=== PATIENT | female | born 1950 | race Caucasian/White ===

== ENCOUNTER 2019-06-26 09:09 | Emergency (ER) | payer OTHER ==
[~2019-06-26] VITALS: Ht 157.5 cm; Wt 48.1 kg
[2019-06-26 10:43] VITALS: BP 102/76
== END 2019-06-26 10:59 | disposition home or self-care (01) ==
LOC: ER 09:09
DX: S83.91XA Sprain of unspecified site of right knee, initial encounter (principal); E78.5 Hyperlipidemia, unspecified; I10 Essential (primary) hypertension; F17.210 Nicotine dependence, cigarettes, uncomplicated; Z98.51 Tubal ligation status; X50.1XXA Overexertion from prolonged static or awkward postures, initial encounter; Y93.89 Activity, other specified; Y92.098 Other place in other non-institutional residence as the place of occurrence of the external cause; Y99.8 Other external cause status
CPT/HCPCS: 73590

== ENCOUNTER 2023-09-15 19:05 | Inpatient (IN) | payer OTHER, MEDICAID ==
[~2023-09-15] VITALS: Ht 154.9 cm; Wt 58.7 kg
[2023-09-15 20:57] LABS: Basophils # (auto) 0 10 ^3/uL (0-0.2); Eosinophils # (auto) 0 10 ^3/uL (0-0.8); Lymphocytes # (auto) 0.8 10 ^3/uL (0.4-5.4); Lymphocytes % (auto) 9.5 % (10.0-50.0); Mean Corpuscular Hemoglobin 33.1 pg (28.0-32.0); Monocytes # (auto) 0.8 10 ^3/uL (0-1.3); Nucleated Red Blood Cells % 0.2 %; Red Blood Cells 4.22 10^6/uL (4.0-5.20)
[2023-09-15 20:59] LABS: Basophils % (auto) 0.2 % (0.0-2.0); Eosinophils % (auto) 0.3 % (0.0-7.0); Hematocrit 43.8 % (36.0-46.0); Hemoglobin 13.9 g/dL (12.2-16.2); Mean Corpuscular Hgb Conc. 31.8 g/dL (32.0-36.0); Monocytes % (auto) 10.1 % (0.0-12.0); Neutrophils # (auto) 6.3 10 ^3/uL (1.6-8.6); Neutrophils % (auto) 79.9 % (37.0-80.0); White Blood Cell 7.9 10^3/uL (4.4-10.8)
[2023-09-15 21:13] LABS: Alanine Aminotransferase 28 U/L (7-40); Albumin 3.2 g/dL (3.2-4.8); Alkaline Phosphatase 115 U/L (46-116); Anion Gap 0 (5-15); Aspartate Aminotransferase 73 U/L (13-40); BUN/Creatinine Ratio 17.2 (10.0-20.0); Blood Urea Nitrogen 34 mg/dL (9-23); Calcium 8.8 mg/dL (8.7-10.4); Carbon Dioxide 19 mmol/L (20-30); Chloride 102 mmol/L (98-107); Glucose 130 mg/dL (74-106); Lipase 86 U/L (12-53); Sodium 121 mmol/L (136-145)
[2023-09-15 21:14] LABS: Bilirubin, Total 0.3 mg/dL (0.2-1.0); Total Protein 7.3 g/dL (5.7-8.2)
[2023-09-15 21:17] LABS: Potassium 5.9 mmol/L (3.5-5.1)
[2023-09-15 22:19] LABS: INR 1.25 (0.9-1.15); Partial Thromboplastin Time 29.4 SEC (24.5-34.5); Prothrombin Time 12.9 sec (9.3-11.8)
[2023-09-16] MEDS: InsuLIN REG 1unit/0.01ml Soln (100units/ml) IV ONE (00:15)
[2023-09-16] MEDS: ALBUTEROL SULF 2.5 MG/0.5ML(0.5%) NEB SOLN NEB ONE (00:38)
[2023-09-16 00:52] VITALS: PULSE 68; RESP 21; O2SAT 90
[2023-09-16] MEDS: DEXTROSE (50%) 50ML SYRG IV ONE (01:49)
[2023-09-16] MEDS ORDERED: ACETAMINOPHEN 325 MG TAB PO PRN (02:00)
[2023-09-16] MEDS ORDERED: ONDANSETRON HCL 4 MG/2 ML VIAL IV PRN (02:00)
[2023-09-16] MEDS ORDERED: DOCUSATE SOD 100 MG CAP PO PRN (02:00)
[2023-09-16] MEDS ORDERED: DEXTROSE (50%) 50ML SYRG IV PRN (02:00)
[2023-09-16 02:11] VITALS: BP 141/68; PULSE 63; RESP 18; TEMP 97.8; O2SAT 97
[2023-09-16] MEDS: ASPirin 81 mg TAB PO ONE (02:32)
[2023-09-16] MEDS: SODIUM ZIRCONIUM CYCL 10 GM PAK PO ONE (02:33)
[2023-09-16] MEDS: SODIUM CHLORIDE 0.9% 1,000 ML IV SCH (02:33)
[2023-09-16 03:57] LABS: Basophils # (auto) 0 10 ^3/uL (0-0.2); Basophils % (auto) 0.6 % (0.0-2.0); Eosinophils # (auto) 0 10 ^3/uL (0-0.8); Eosinophils % (auto) 0.1 % (0.0-7.0); Hematocrit 36.7 % (36.0-46.0); Hemoglobin 12.3 g/dL (12.2-16.2); Lymphocytes # (auto) 0.9 10 ^3/uL (0.4-5.4); Lymphocytes % (auto) 11.6 % (10.0-50.0); Mean Corpuscular Hemoglobin 33.8 pg (28.0-32.0); Mean Corpuscular Hgb Conc. 33.4 g/dL (32.0-36.0); Mean Corpuscular Volume 101.2 fL (80.0-100.0); Monocytes # (auto) 1.1 10 ^3/uL (0-1.3); Monocytes % (auto) 14.6 % (0.0-12.0); Neutrophils # (auto) 5.6 10 ^3/uL (1.6-8.6); Neutrophils % (auto) 73.1 % (37.0-80.0); Nucleated Red Blood Cells % 0.2 %; Red Blood Cells 3.62 10^6/uL (4.0-5.20); Red Cell Distribution Width 16.2 % (11.8-14.3); White Blood Cell 7.7 10^3/uL (4.4-10.8)
[2023-09-16 04:12] LABS: Albumin 2.8 g/dL (3.2-4.8); Alkaline Phosphatase 96 U/L (46-116); Anion Gap 4 (5-15); Aspartate Aminotransferase 72 U/L (13-40); BUN/Creatinine Ratio 18.7 (10.0-20.0); Blood Urea Nitrogen 38 mg/dL (9-23); Calcium 8.3 mg/dL (8.7-10.4); Carbon Dioxide 17 mmol/L (20-30); Chloride 101 mmol/L (98-107); Glucose 105 mg/dL (74-106); Potassium 4.9 mmol/L (3.5-5.1); Sodium 122 mmol/L (136-145)
[2023-09-16 04:13] LABS: Bilirubin, Total 0.2 mg/dL (0.2-1.0); Total Protein 6.2 g/dL (5.7-8.2)
[2023-09-16 04:21] LABS: Alanine Aminotransferase 27 U/L (7-40)
[2023-09-16] MEDS ORDERED: MORPHINE SULFATE INJ 2 MG/ml SYRG IV PRN (06:00)
[2023-09-16] MEDS ORDERED: NITROGLYCERIN 0.4 MG SL TAB SL PRN (06:00)
[2023-09-16 06:23] LABS: Urine Bacteria None Seen /hpf (None Seen)
[2023-09-16] MEDS: ACCU-CHEK COMFORT CURVE STRIP VI SCH (06:24)
[2023-09-16] MEDS: InsuLIN REG 1unit/0.01ml Soln (100units/ml) SC SCH ×2 (06:24→22:33)
[2023-09-16] MEDS: FUROSEMIDE 100 MG/10ML VIAL IV ONE (06:27)
[2023-09-16 06:52] LABS: Urine Blood Negative /uL (Negative); Urine Clarity Clear (Clear); Urine Color Yellow (Yellow); Urine Hyaline Cast FEW /lpf (0 - 2); Urine Protein, UAD 1+ (Negative); Urine Specific Gravity 1.019 (1.001-1.035); Urine Urobilinogen Normal (Negative); Urine WBC <1 /hpf (0 - 5)
[2023-09-16 07:28] VITALS: PULSE 74; RESP 8; O2SAT 95
[2023-09-16 10:29] VITALS: O2SAT 95
[2023-09-16] MEDS: FUROSEMIDE 40 MG/4 ML VIAL IV SCH (10:48)
[2023-09-16] MEDS: FUROSEMIDE 40 MG/4 ML VIAL IV ONE (13:24)
[2023-09-16 18:08] VITALS: O2SAT 98
[2023-09-16 19:30] VITALS: PULSE 91; RESP 12; O2SAT 93
[2023-09-16] MEDS: ATORVASTATIN 20 MG TAB PO SCH (22:33)
[2023-09-17] VITALS (11 sets, daily range): BP systolic 140–152; BP diastolic 61–66; PULSE 91–104; RESP 16–20; TEMP 97.4–98.5; O2SAT 91–97
[2023-09-17] MEDS ORDERED: METO25TA5 PO (01:39)
[2023-09-17] MEDS ORDERED: LISI40TA16 PO (01:39)
[2023-09-17] MEDS ORDERED: METF-370 PO (01:39)
[2023-09-17 06:09] LABS: Basophils # (auto) 0 10 ^3/uL (0-0.2); Basophils % (auto) 0.4 % (0.0-2.0); Eosinophils # (auto) 0.1 10 ^3/uL (0-0.8); Hemoglobin 11.2 g/dL (12.2-16.2); Lymphocytes # (auto) 0.6 10 ^3/uL (0.4-5.4); Mean Corpuscular Hemoglobin 33.3 pg (28.0-32.0); Mean Corpuscular Hgb Conc. 32.9 g/dL (32.0-36.0); Mean Corpuscular Volume 101.2 fL (80.0-100.0); Monocytes # (auto) 0.9 10 ^3/uL (0-1.3); Monocytes % (auto) 13.5 % (0.0-12.0); Neutrophils # (auto) 5.3 10 ^3/uL (1.6-8.6); Neutrophils % (auto) 77.1 % (37.0-80.0); Nucleated Red Blood Cells % 0.1 %; Red Blood Cells 3.36 10^6/uL (4.0-5.20); Red Cell Distribution Width 16.7 % (11.8-14.3); White Blood Cell 6.9 10^3/uL (4.4-10.8)
[2023-09-17 06:22] LABS: Alanine Aminotransferase 27 U/L (7-40); Albumin 2.8 g/dL (3.2-4.8); Alkaline Phosphatase 102 U/L (46-116); Anion Gap 2 (5-15); Aspartate Aminotransferase 63 U/L (13-40); BUN/Creatinine Ratio 19.4 (10.0-20.0); Blood Urea Nitrogen 37 mg/dL (9-23); Calcium 7.9 mg/dL (8.7-10.4); Carbon Dioxide 19 mmol/L (20-30); Chloride 102 mmol/L (98-107); Glucose 121 mg/dL (74-106); Potassium 4.9 mmol/L (3.5-5.1); Sodium 123 mmol/L (136-145); Uric Acid 9.5 mg/dL (3.1-7.8)
[2023-09-17 06:23] LABS: Bilirubin, Total 0.2 mg/dL (0.2-1.0); Total Protein 6.2 g/dL (5.7-8.2)
[2023-09-17] MEDS: ASPirin 81 mg TAB PO SCH (09:17)
[2023-09-17] MEDS: FUROSEMIDE 40 MG/4 ML VIAL IV SCH (09:17)
[2023-09-17 10:34] LABS: Hepatitis B Surface Antigen Negative (Negative)
[2023-09-17 10:54] LABS: Hepatitis A Ab IgM Negative
[2023-09-17 10:55] LABS: Hepatitis B Core IgM Negative
[2023-09-17] MEDS: MULTIPLE VITAMIN TAB PO SCH (11:35)
[2023-09-17] MEDS: FOLIC ACID 1 MG TAB PO SCH (11:36)
[2023-09-17] MEDS: THIAMINE HCL 100 MG TAB PO SCH (11:36)
[2023-09-17 12:52] LABS: Hepatitis C Antibody Reactive (Negative)
[2023-09-17] MEDS ORDERED: TIOTCAP INH (15:36)
[2023-09-17] MEDS ORDERED: CYCL-839 PO (15:36)
[2023-09-17] MEDS ORDERED: GABA-1250 PO (15:36)
[2023-09-17] MEDS ORDERED: ESCI20TA PO (15:36)
[2023-09-17] MEDS ORDERED: TIMO0.5S28 EACHEYE (15:36)
[2023-09-17] MEDS ORDERED: TRAZ-227 PO (15:36)
[2023-09-17] MEDS ORDERED: HYDR-4069 PO (15:36)
[2023-09-17 16:07] LABS: Sodium Urine < 10 mmol/L (40-220)
[2023-09-17 16:12] LABS: Protein, Urine 72.3 mg/dL (0.0-11.9)
[2023-09-17 16:14] LABS: Amphetamine Screen, Urine Neg (NEGATIVE); Barbiturate Scree,Urine Neg (NEGATIVE); Benzodiazephine Screen, Urine Neg (NEGATIVE); Cannabinoid Screen, Urine Neg (NEGATIVE); Cocaine Screen, Urine Neg (NEGATIVE); Opiate Scree,Urine Pos (NEGATIVE); Phencyclidine Screen, Urine Neg (NEGATIVE)
[2023-09-17 16:15] LABS: Creatinine, Urine 78.96 mg/dL (30.0-125.0); Urine Protein/Creatinine Ratio 0.92
[2023-09-17] MEDS: ALLOPURINOL 100 MG TAB PO SCH (17:16)
[2023-09-17] MEDS: SEVELAMER 800 MG TAB PO SCH (17:16)
[2023-09-17] MEDS: hydrALAZINE HCL 20 MG/ML VL IV PRN (17:17)
[2023-09-18] VITALS (11 sets, daily range): BP systolic 105–177; BP diastolic 53–79; PULSE 83–114; RESP 15–20; TEMP 97.6–98.6; O2SAT 88–96
[2023-09-18] MEDS: HYDROcodone-ACET 5/325MG TAB PO PRN (01:27)
[2023-09-18] MEDS: dilTIAZem 25 MG/5 ML VIAL IV ONE (05:46)
[2023-09-18 07:00] LABS: Basophils # (auto) 0 10 ^3/uL (0-0.2); Eosinophils # (auto) 0 10 ^3/uL (0-0.8); Eosinophils % (auto) 0.6 % (0.0-7.0); Lymphocytes # (auto) 0.5 10 ^3/uL (0.4-5.4); Nucleated Red Blood Cells % 0.2 %
[2023-09-18 07:02] LABS: Basophils % (auto) 0.4 % (0.0-2.0); Hematocrit 37.2 % (36.0-46.0); Hemoglobin 12.1 g/dL (12.2-16.2); Lymphocytes % (auto) 6.5 % (10.0-50.0); Mean Corpuscular Hemoglobin 33.4 pg (28.0-32.0); Mean Corpuscular Hgb Conc. 32.4 g/dL (32.0-36.0); Mean Corpuscular Volume 102.9 fL (80.0-100.0); Monocytes # (auto) 0.8 10 ^3/uL (0-1.3); Neutrophils # (auto) 6.8 10 ^3/uL (1.6-8.6); Neutrophils % (auto) 82.5 % (37.0-80.0); Red Blood Cells 3.62 10^6/uL (4.0-5.20); Red Cell Distribution Width 16.8 % (11.8-14.3); White Blood Cell 8.2 10^3/uL (4.4-10.8)
[2023-09-18 07:26] LABS: Alanine Aminotransferase 27 U/L (7-40); Alkaline Phosphatase 107 U/L (46-116); Anion Gap 4 (5-15); Aspartate Aminotransferase 50 U/L (13-40); BUN/Creatinine Ratio 26.1 (10.0-20.0); Bilirubin, Total 0.3 mg/dL (0.2-1.0); Blood Urea Nitrogen 36 mg/dL (9-23); Calcium 7.8 mg/dL (8.5-10.1); Carbon Dioxide 20 mmol/L (20-30); Chloride 100 mmol/L (98-107); Glucose 128 mg/dL (74-106); Potassium 4.7 mmol/L (3.5-5.1); Sodium 124 mmol/L (136-145); Total Protein 6.5 g/dL (5.7-8.2)
[2023-09-18 07:41] LABS: Magnesium 1.9 mg/dL (1.6-2.6)
[2023-09-18] MEDS: PATIENTS OWN MEDICATION (Tiotropium Bromide Monohydrate (Spiriva Handihaler) 1 PUFF) IN SCH (10:00)
[2023-09-18] MEDS: FUROSEMIDE 40 MG/4 ML VIAL IV SCH (10:45)
[2023-09-18] MEDS: traZODone HCL 50 MG TAB PO SCH (12:00)
[2023-09-18] MEDS: METOPROLOL TARTRATE 25 MG TAB PO SCH (12:01)
[2023-09-18] MEDS: SODIUM CHLORIDE 1 GM TAB PO SCH (13:28)
[2023-09-18] MEDS: GABAPENTIN 100 MG CAP PO SCH (13:29)
[2023-09-19] VITALS (13 sets, daily range): BP systolic 153–207; BP diastolic 61–117; PULSE 89–114; RESP 16–19; TEMP 98–98.5; O2SAT 91–100
[2023-09-19] MEDS: KETOROLAC TROMETH 30 MG/ML 1ML VIAL IV ONE (00:08)
[2023-09-19] MEDS: dilTIAZem 25 MG/5 ML VIAL IV ONE (05:22)
[2023-09-19] MEDS: TIMOLOL MAL 0.5% OPTH(EYE) SOL 5ML EACHEYE SCH (05:59)
[2023-09-19 07:04] LABS: Chloride 105 mmol/L (98-107); Potassium 4.4 mmol/L (3.5-5.1); Sodium 127 mmol/L (136-145)
[2023-09-19 07:05] LABS: Anion Gap 1 (5-15); Calcium 8.5 mg/dL (8.7-10.4); Carbon Dioxide 21 mmol/L (20-30)
[2023-09-19 07:09] LABS: Uric Acid 9.4 mg/dL (3.1-7.8)
[2023-09-19 07:10] LABS: BUN/Creatinine Ratio 35.8 (10.0-20.0); Blood Urea Nitrogen 39 mg/dL (9-23); Glucose 121 mg/dL (74-106)
[2023-09-19 07:12] LABS: Phosphorus 3.9 mg/dL (2.4-5.1)
[2023-09-19] MEDS: CITALOPRAM HYDROBR 20 MG TAB PO SCH (10:00)
[2023-09-19] MEDS: cloNIDine 0.1 mg/24hr 7 DAY PATCH TD SCH (11:02)
[2023-09-19] MEDS: ALLOPURINOL 100 MG TAB PO SCH (12:45)
[2023-09-19] MEDS: ALBUTEROL SULF 2.5 MG/0.5ML(0.5%) NEB SOLN NEB PRN (12:47)
[2023-09-19] MEDS: LABETALOL HCL 5 MG/ML 4ML SYRINGE IV ONE (13:09)
[2023-09-19] MEDS: METOPROLOL TARTRATE 25 MG TAB PO ONE (16:18)
[2023-09-19] MEDS: CARVEDILOL 3.125 MG TAB PO SCH (21:21)
[2023-09-20] VITALS (9 sets, daily range): BP systolic 142–193; BP diastolic 70–90; PULSE 84–100; RESP 16–20; TEMP 36.4; O2SAT 92–98
[2023-09-20 07:11] LABS: Alanine Aminotransferase 23 U/L (7-40); Albumin 2.9 g/dL (3.2-4.8); Alkaline Phosphatase 100 U/L (46-116); Anion Gap 1 (5-15); Aspartate Aminotransferase 40 U/L (13-40); BUN/Creatinine Ratio 36.7 (10.0-20.0); Calcium 8.8 mg/dL (8.7-10.4); Carbon Dioxide 22 mmol/L (20-30); Chloride 107 mmol/L (98-107); Glucose 133 mg/dL (74-106); Magnesium 1.7 mg/dL (1.6-2.6); Potassium 4.3 mmol/L (3.5-5.1); Sodium 130 mmol/L (136-145)
[2023-09-20 07:12] LABS: Bilirubin, Total 0.5 mg/dL (0.2-1.0); Total Protein 6.3 g/dL (5.7-8.2)
[2023-09-20 07:22] LABS: Basophils # (auto) 0 10 ^3/uL (0-0.2); Eosinophils # (auto) 0 10 ^3/uL (0-0.8); Lymphocytes # (auto) 0.4 10 ^3/uL (0.4-5.4); Lymphocytes % (auto) 5.6 % (10.0-50.0); Mean Corpuscular Hgb Conc. 32.7 g/dL (32.0-36.0); Nucleated Red Blood Cells % 0.1 %; White Blood Cell 7.9 10^3/uL (4.4-10.8)
[2023-09-20 07:23] LABS: Blood Urea Nitrogen 29 mg/dL (9-23)
[2023-09-20 07:26] LABS: Basophils % (auto) 0.3 % (0.0-2.0); Eosinophils % (auto) 0.2 % (0.0-7.0); Hemoglobin 13.1 g/dL (12.2-16.2); Mean Corpuscular Hemoglobin 33.5 pg (28.0-32.0); Mean Corpuscular Volume 102.4 fL (80.0-100.0); Monocytes # (auto) 0.6 10 ^3/uL (0-1.3); Neutrophils # (auto) 6.9 10 ^3/uL (1.6-8.6); Neutrophils % (auto) 86.9 % (37.0-80.0); Red Blood Cells 3.91 10^6/uL (4.0-5.20); Red Cell Distribution Width 17.1 % (11.8-14.3)
[2023-09-20] MEDS ORDERED: FOLI-119 PO (09:39)
[2023-09-20] MEDS ORDERED: CARV-216 OR (09:39)
[2023-09-20] MEDS ORDERED: MULTTAB99 PO (09:39)
[2023-09-20] MEDS ORDERED: THIA100T10 PO (09:39)
[2023-09-20] MEDS ORDERED: FURO1TAB31 PO (09:39)
[2023-09-20] MEDS ORDERED: HYDR25TA87 PO (09:39)
[2023-09-20 13:06] LABS: Albumin 2.3 g/dL (2.9-4.4); Alpha-1-Globulin 0.4 g/dL (0.0-0.4); Gamma Globulin 1.7 g/dL (0.4-1.8); Globulin Total 4.1 g/dL (2.2-3.9); Protein Total Serum 6.4 g/dL (6.0-8.5)
== END 2023-09-20 16:15 | disposition home health service (06) | DRG 432 ==
LOC: ER 19:05 → TELE 09-16 05:47 → TELE-EAST 09-16 23:41
PROVIDERS: ADMIT Nurse Practitioner Family; ATTEND Internal Medicine Geriatric Medicine
PROC: 05HC33Z Insertion of Infusion Device into Left Basilic Vein, Percutaneous Approach (ICD-10-PCS; principal; 2023-09-18)
PROC: B54NZZA Ultrasonography of Left Upper Extremity Veins, Guidance (ICD-10-PCS; 2023-09-18)
DX: K70.31 Alcoholic cirrhosis of liver with ascites (principal); E43 Unspecified severe protein-calorie malnutrition; I21.A1 Myocardial infarction type 2; G93.41 Metabolic encephalopathy; I50.33 Acute on chronic diastolic (congestive) heart failure; N17.9 Acute kidney failure, unspecified; D68.9 Coagulation defect, unspecified; I31.39 Other pericardial effusion (noninflammatory); K86.1 Other chronic pancreatitis; J98.11 Atelectasis; F10.239 Alcohol dependence with withdrawal, unspecified; E87.1 Hypo-osmolality and hyponatremia; E87.5 Hyperkalemia; I11.0 Hypertensive heart disease with heart failure; E11.65 Type 2 diabetes mellitus with hyperglycemia; E78.5 Hyperlipidemia, unspecified; E83.39 Other disorders of phosphorus metabolism; F17.210 Nicotine dependence, cigarettes, uncomplicated; G89.29 Other chronic pain; J43.9 Emphysema, unspecified; B19.20 Unspecified viral hepatitis C without hepatic coma; H54.62 Unqualified visual loss, left eye, normal vision right eye; K40.90 Unilateral inguinal hernia, without obstruction or gangrene, not specified as recurrent; K80.20 Calculus of gallbladder without cholecystitis without obstruction; Z90.49 Acquired absence of other specified parts of digestive tract; Z68.24 Body mass index [BMI] 24.0-24.9, adult
CPT/HCPCS: 36415; 71045; 74176; 80048; 80053; 80074; 80307; 81001; 82306; 82570; 82607; 82746; 82962; 83605; 83690; 83735; 83880; 83930; 83935; 83970; 84100; 84132; 84155; 84156; 84165; 84295; 84300; 84443; 84484; 84550; 85025; 85610; 85730; 87040; 92610; 93005; 93306; 93975; 94640; 96374; 96375; 97163; G0378; J1815; J1885; J3490

== ENCOUNTER 2023-09-26 12:04 | Inpatient (IN) | payer OTHER, MEDICAID ==
[~2023-09-26] VITALS: Ht 154.9 cm; Wt 68.4 kg
[~2023-09-26 12:04] MED LIST: CARV-216 OR; CYCL-839 PO; ESCI20TA PO; FOLI-119 PO; FURO1TAB31 PO; GABA-1250 PO; HYDR-4069 PO; HYDR25TA87 PO; METF-370 PO; MULTTAB99 PO; THIA100T10 PO; TIMO0.5S28 EACHEYE; TIOTCAP INH; TRAZ-227 PO
[2023-09-26 13:21] LABS: Basophils # (auto) 0 10 ^3/uL (0-0.2); Eosinophils # (auto) 0 10 ^3/uL (0-0.8); Eosinophils % (auto) 0.1 % (0.0-7.0); Hemoglobin 11.8 g/dL (12.2-16.2); Lymphocytes # (auto) 0.7 10 ^3/uL (0.4-5.4); Lymphocytes % (auto) 4.6 % (10.0-50.0); Nucleated Red Blood Cells % 0.3 %
[2023-09-26 13:23] LABS: Basophils % (auto) 0.2 % (0.0-2.0); Hematocrit 36.3 % (36.0-46.0); Mean Corpuscular Hemoglobin 33.3 pg (28.0-32.0); Mean Corpuscular Hgb Conc. 32.4 g/dL (32.0-36.0); Mean Corpuscular Volume 102.6 fL (80.0-100.0); Monocytes % (auto) 6.5 % (0.0-12.0); Neutrophils # (auto) 13.3 10 ^3/uL (1.6-8.6); Neutrophils % (auto) 88.6 % (37.0-80.0); Red Blood Cells 3.54 10^6/uL (4.0-5.20); Red Cell Distribution Width 17.1 % (11.8-14.3)
[2023-09-26 13:47] LABS: INR 1.14 (0.9-1.15); Partial Thromboplastin Time 26.5 SEC (24.5-34.5); Prothrombin Time 11.9 sec (9.3-11.8)
[2023-09-26] MEDS: PIPERACILLIN-TAZOB 3.375GM 100 ML IV ONE (13:51)
[2023-09-26 14:00] VITALS: PULSE 44; RESP 9; O2SAT 99
[2023-09-26] MEDS: SODIUM CHLORIDE 0.9% 1,000 ML IV ONE (14:08)
[2023-09-26 14:10] LABS: Alanine Aminotransferase 24 U/L (7-40); Albumin 2.9 g/dL (3.2-4.8); Alkaline Phosphatase 83 U/L (46-116); Anion Gap 4 (5-15); Aspartate Aminotransferase 29 U/L (13-40); BUN/Creatinine Ratio 21.3 (10.0-20.0); Bilirubin, Total < 0.2 mg/dL (0.2-1.0); Blood Urea Nitrogen 50 mg/dL (9-23); Carbon Dioxide 22 mmol/L (20-30); Chloride 103 mmol/L (98-107); Glucose 182 mg/dL (74-106); Potassium 5.1 mmol/L (3.5-5.1); Sodium 129 mmol/L (136-145); Total Protein 6.2 g/dL (5.7-8.2)
[2023-09-26 14:24] LABS: Lactic Acid w/Reflex 2.6 mmol/L (0.4-2.0)
[2023-09-26] MEDS: NOREPINEPHRINE 8 MG/250ML KIT 250 ML IV SCH (14:27)
[2023-09-26] MEDS: NOREPINEPHRINE 8 MG/250ML KIT 250 ML IV ONE (14:28)
[2023-09-26] MEDS: VANCOMYCIN 1GM/200ML 200 ML IV ONE (16:34)
[2023-09-26] MEDS ORDERED: NITROGLYCERIN 0.4 MG SL TAB SL PRN (17:15)
[2023-09-26] MEDS ORDERED: ONDANSETRON HCL 4 MG/2 ML VIAL IV PRN (17:15)
[2023-09-26] MEDS ORDERED: DOCUSATE SOD 100 MG CAP PO PRN (17:15)
[2023-09-26] MEDS ORDERED: VANCOMYCIN PER PHARMACY 0 MG IV SCH (17:15)
[2023-09-26] MEDS ORDERED: MORPHINE SULFATE INJ 2 MG/ml SYRG IV PRN (17:15)
[2023-09-26] MEDS: SODIUM CHLORIDE 0.9% 1,000 ML IV SCH (18:55)
[2023-09-26] MEDS: MULTIPLE VITAMIN TAB PO ONE (19:00)
[2023-09-26] MEDS ORDERED: DEXTROSE (50%) 50ML SYRG IV PRN (19:00)
[2023-09-26] MEDS: ALBUMIN 5% 250 ML IV ONE (19:12)
[2023-09-26 20:00] VITALS: PULSE 46; RESP 11; O2SAT 96
[2023-09-26] MEDS: FOLIC ACID 1 MG TAB PO ONE (20:30)
[2023-09-26] MEDS: THIAMINE HCL 100 MG TAB PO ONE (20:31)
[2023-09-26 21:20] VITALS: O2SAT 95
[2023-09-26] MEDS: ACCU-CHEK COMFORT CURVE STRIP VI SCH (22:00)
[2023-09-26 22:51] VITALS: BP 120/44; PULSE 45; RESP 14; TEMP 94.5; O2SAT 95
[2023-09-26] MEDS: InsuLIN REG 1unit/0.01ml Soln (100units/ml) SC SCH (22:56)
[2023-09-27 01:13] LABS: Anion Gap 1 (5-15); BUN/Creatinine Ratio 19.6 (10.0-20.0); Blood Urea Nitrogen 51 mg/dL (9-23); Calcium 8.3 mg/dL (8.7-10.4); Carbon Dioxide 21 mmol/L (20-30); Chloride 106 mmol/L (98-107); Glucose 170 mg/dL (74-106); Potassium 5.4 mmol/L (3.5-5.1); Sodium 128 mmol/L (136-145)
[2023-09-27 06:12] VITALS: PULSE 59; RESP 14; O2SAT 94
[2023-09-27] MEDS: ALBUTEROL SULF 2.5 MG/0.5ML(0.5%) NEB SOLN NEB PRN (06:12)
[2023-09-27] MEDS: IPRATROPIUM BROM 0.5 MG/2.5ML INH SOL NEB PRN (06:12)
[2023-09-27 06:21] LABS: Basophils # (auto) 0.1 10 ^3/uL (0-0.2); Basophils % (auto) 0.9 % (0.0-2.0); Eosinophils # (auto) 0 10 ^3/uL (0-0.8); Eosinophils % (auto) 0.3 % (0.0-7.0); Hematocrit 33.7 % (36.0-46.0); Hemoglobin 10.9 g/dL (12.2-16.2); Lymphocytes # (auto) 0.7 10 ^3/uL (0.4-5.4); Lymphocytes % (auto) 5.2 % (10.0-50.0); Mean Corpuscular Hemoglobin 32.6 pg (28.0-32.0); Mean Corpuscular Hgb Conc. 32.3 g/dL (32.0-36.0); Mean Corpuscular Volume 101.1 fL (80.0-100.0); Monocytes % (auto) 7.7 % (0.0-12.0); Neutrophils # (auto) 11.4 10 ^3/uL (1.6-8.6); Neutrophils % (auto) 85.9 % (37.0-80.0); Nucleated Red Blood Cells % 0.9 %; Red Blood Cells 3.33 10^6/uL (4.0-5.20); Red Cell Distribution Width 16.8 % (11.8-14.3); White Blood Cell 13.2 10^3/uL (4.4-10.8)
[2023-09-27 06:22] VITALS: PULSE 59; RESP 16; O2SAT 97
[2023-09-27 06:28] LABS: Urine Bacteria MANY /hpf (None Seen); Urine Blood 3+ /uL (Negative); Urine Clarity Ex.Turbid (Clear); Urine Color Light-Orange (Yellow); Urine Mucus FEW (None Seen); Urine Protein, UAD 3+ (Negative); Urine Specific Gravity 1.018 (1.001-1.035); Urine Urobilinogen Normal (Negative); Urine WBC 2330 /hpf (0 - 5); Urine WBC Clumps PRESENT /hpf (None Seen)
[2023-09-27 06:36] LABS: Alanine Aminotransferase 22 U/L (7-40); Albumin 3.2 g/dL (3.2-4.8); Alkaline Phosphatase 75 U/L (46-116); Anion Gap 5 (5-15); Aspartate Aminotransferase 34 U/L (13-40); BUN/Creatinine Ratio 21.6 (10.0-20.0); Blood Urea Nitrogen 57 mg/dL (9-23); Calcium 8.1 mg/dL (8.5-10.1); Carbon Dioxide 21 mmol/L (20-30); Chloride 103 mmol/L (98-107); Glucose 137 mg/dL (74-106); Potassium 5.4 mmol/L (3.5-5.1); Sodium 129 mmol/L (136-145)
[2023-09-27 06:37] LABS: Bilirubin, Total 0.2 mg/dL (0.2-1.0); Total Protein 6.4 g/dL (5.7-8.2)
[2023-09-27 07:30] VITALS: PULSE 61; RESP 12; O2SAT 92
[2023-09-27] MEDS: VANCOMYCIN 1GM/200ML 200 ML IV ONE (09:30)
[2023-09-27] MEDS: MULTIPLE VITAMIN TAB PO SCH (10:25)
[2023-09-27] MEDS: SODIUM ZIRCONIUM CYCL 10 GM PAK PO SCH (10:25)
[2023-09-27] MEDS: THIAMINE HCL 100 MG TAB PO SCH (10:25)
[2023-09-27] MEDS: ALBUMIN 25% 100 ML IV SCH (10:25)
[2023-09-27] MEDS: FOLIC ACID 1 MG TAB PO SCH (10:26)
[2023-09-27] MEDS: CEFEPIME 1GM/ 50ML 50 ML IV SCH (10:26)
[2023-09-27] MEDS: ENOXAPARIN SOD 30 MG/0.3 ML SYRINGE SC SCH (10:26)
[2023-09-27] MEDS: PANTOPRAZOLE 40 MG/10 ML VIAL INJ IV SCH (10:26)
[2023-09-27] MEDS: FUROSEMIDE 20 MG/2 ML VIAL IV SCH (10:28)
[2023-09-27] MEDS: SODIUM CHLORIDE 0.9% 1,000 ML IV SCH (12:45)
[2023-09-27 14:32] LABS: Chloride 104 mmol/L (98-107); Potassium 5.2 mmol/L (3.5-5.1); Sodium 131 mmol/L (136-145)
[2023-09-27 14:35] LABS: Anion Gap 5 (5-15); Carbon Dioxide 22 mmol/L (20-30)
[2023-09-27 14:36] LABS: Calcium 7.9 mg/dL (8.5-10.1)
[2023-09-27 14:41] LABS: BUN/Creatinine Ratio 25.7 (10.0-20.0); Glucose 122 mg/dL (74-106)
[2023-09-27 14:47] LABS: Blood Urea Nitrogen 69 mg/dL (9-23)
[2023-09-27] MEDS ORDERED: CARV12.544 PO (16:14)
[2023-09-27 18:20] LABS: Chloride 105 mmol/L (98-107); Sodium 131 mmol/L (136-145)
[2023-09-27 18:21] LABS: Anion Gap 7 (5-15); Calcium 7.8 mg/dL (8.5-10.1); Carbon Dioxide 19 mmol/L (20-30)
[2023-09-27 18:26] LABS: BUN/Creatinine Ratio 19.7 (10.0-20.0); Glucose 123 mg/dL (74-106)
[2023-09-27 18:38] LABS: Blood Urea Nitrogen 53 mg/dL (9-23)
[2023-09-27 19:30] VITALS: PULSE 66; RESP 14; O2SAT 94
[2023-09-28 04:20] VITALS: PULSE 74; RESP 18; O2SAT 98
[2023-09-28 05:52] LABS: Basophils # (auto) 0 10 ^3/uL (0-0.2); Basophils % (auto) 0.4 % (0.0-2.0); Eosinophils # (auto) 0.1 10 ^3/uL (0-0.8); Hematocrit 31.3 % (36.0-46.0); Hemoglobin 10.1 g/dL (12.2-16.2); Lymphocytes # (auto) 0.6 10 ^3/uL (0.4-5.4); Lymphocytes % (auto) 6.8 % (10.0-50.0); Mean Corpuscular Hemoglobin 32.4 pg (28.0-32.0); Mean Corpuscular Hgb Conc. 32.1 g/dL (32.0-36.0); Mean Corpuscular Volume 100.8 fL (80.0-100.0); Monocytes # (auto) 0.8 10 ^3/uL (0-1.3); Monocytes % (auto) 8.8 % (0.0-12.0); Neutrophils # (auto) 7.4 10 ^3/uL (1.6-8.6); Nucleated Red Blood Cells % 0.6 %; Red Blood Cells 3.11 10^6/uL (4.0-5.20); Red Cell Distribution Width 16.5 % (11.8-14.3); White Blood Cell 8.9 10^3/uL (4.4-10.8)
[2023-09-28 06:00] LABS: Alanine Aminotransferase 19 U/L (7-40); Albumin 3.5 g/dL (3.2-4.8); Alkaline Phosphatase 67 U/L (46-116); Anion Gap 8 (5-15); Aspartate Aminotransferase 39 U/L (13-40); BUN/Creatinine Ratio 24.4 (10.0-20.0); Bilirubin, Total 0.2 mg/dL (0.2-1.0); Calcium 8.4 mg/dL (8.7-10.4); Carbon Dioxide 21 mmol/L (20-30); Chloride 102 mmol/L (98-107); Glucose 163 mg/dL (74-106); Magnesium 1.9 mg/dL (1.6-2.6); Potassium 5.1 mmol/L (3.5-5.1); Sodium 131 mmol/L (136-145); Total Protein 6.1 g/dL (5.7-8.2)
[2023-09-28 06:06] LABS: Blood Urea Nitrogen 70 mg/dL (9-23)
[2023-09-28 07:30] VITALS: PULSE 60; RESP 15; O2SAT 97
[2023-09-28 10:41] VITALS: O2SAT 94
[2023-09-28] MEDS: VANCOMYCIN 1GM/200ML 200 ML IV ONE (14:32)
[2023-09-28 18:50] VITALS: O2SAT 96
[2023-09-28 19:30] VITALS: PULSE 61; RESP 13; O2SAT 96
[2023-09-29 04:44] VITALS: PULSE 75; RESP 18; O2SAT 90
[2023-09-29 04:48] VITALS: PULSE 94; RESP 11; O2SAT 99
[2023-09-29] MEDS: FUROSEMIDE 40 MG/4 ML VIAL ONE (04:50)
[2023-09-29] MEDS: FUROSEMIDE 40 MG/4 ML VIAL IV ONE (05:05)
[2023-09-29 06:28] VITALS: O2SAT 93
[2023-09-29 11:59] LABS: Chloride 106 mmol/L (98-107); Potassium 4.8 mmol/L (3.5-5.1); Sodium 131 mmol/L (136-145)
[2023-09-29 12:00] LABS: Anion Gap 9 (5-15); Calcium 8.1 mg/dL (8.5-10.1); Carbon Dioxide 16 mmol/L (20-30)
[2023-09-29 12:05] LABS: BUN/Creatinine Ratio 19.3 (10.0-20.0); Glucose 109 mg/dL (74-106)
[2023-09-29 12:17] LABS: Blood Urea Nitrogen 57 mg/dL (9-23)
[2023-09-29] MEDS: SODIUM CHLORIDE 0.9% 1,000 ML IV SCH (13:22)
[2023-09-29 18:05] VITALS: O2SAT 98
[2023-09-29 19:45] VITALS: PULSE 68; RESP 15; O2SAT 97
[2023-09-29 22:50] VITALS: BP 104/46; PULSE 79; RESP 16; O2SAT 95
[2023-09-30] VITALS (11 sets, daily range): BP systolic 110–177; BP diastolic 44–72; PULSE 59–89; RESP 16–22; TEMP 97.8–98.7; O2SAT 91–97
[2023-09-30] MEDS: cefTRIAXone 1GM/50ML D5W 50 ML IV SCH (08:21)
[2023-09-30 08:41] LABS: Chloride 108 mmol/L (98-107); Potassium 4.3 mmol/L (3.5-5.1); Sodium 133 mmol/L (136-145)
[2023-09-30 08:43] LABS: Calcium 8.2 mg/dL (8.5-10.1)
[2023-09-30 08:47] LABS: Glucose 81 mg/dL (74-106)
[2023-09-30 08:51] LABS: Blood Urea Nitrogen 47 mg/dL (9-23)
[2023-09-30 08:54] LABS: Anion Gap 9 (5-15); Carbon Dioxide 16 mmol/L (20-30)
[2023-09-30] MEDS: SODIUM CHLORIDE 0.9% 1,000 ML IV SCH (15:50)
[2023-09-30] MEDS: ACETAMINOPHEN 325 MG TAB PO PRN (21:41)
[2023-10-01] VITALS (11 sets, daily range): BP systolic 128–194; BP diastolic 59–88; PULSE 57–104; RESP 17–20; TEMP 97.3–98; O2SAT 94–98
[2023-10-01] MEDS: HYDROcodone-ACET 5/325MG TAB PO PRN (01:26)
[2023-10-01 04:35] LABS: Chloride 107 mmol/L (98-107); Potassium 4.1 mmol/L (3.5-5.1); Sodium 133 mmol/L (136-145)
[2023-10-01 04:36] LABS: Anion Gap 6 (5-15); Calcium 8.3 mg/dL (8.7-10.4); Carbon Dioxide 20 mmol/L (20-30)
[2023-10-01 04:41] LABS: BUN/Creatinine Ratio 22.1 (10.0-20.0); Blood Urea Nitrogen 49 mg/dL (9-23); Glucose 134 mg/dL (74-106)
[2023-10-01] MEDS: dilTIAZem 25 MG/5 ML VIAL IV ONE (21:19)
[2023-10-02] VITALS (12 sets, daily range): BP systolic 158–218; BP diastolic 68–108; PULSE 42–107; RESP 16–20; TEMP 97.4–97.8; O2SAT 92–96
[2023-10-02 08:51] LABS: Chloride 109 mmol/L (98-107); Potassium 3.8 mmol/L (3.5-5.1); Sodium 138 mmol/L (136-145)
[2023-10-02 08:52] LABS: Anion Gap 6 (5-15); Calcium 8.7 mg/dL (8.5-10.1); Carbon Dioxide 23 mmol/L (20-30)
[2023-10-02 08:57] LABS: BUN/Creatinine Ratio 34.4 (10.0-20.0); Blood Urea Nitrogen 52 mg/dL (9-23); Glucose 92 mg/dL (74-106)
[2023-10-02] MEDS: FUROSEMIDE 40 MG/4 ML VIAL IV ONE (11:55)
[2023-10-02] MEDS: CARVEDILOL 12.5 MG TAB PO ONE (16:47)
[2023-10-02] MEDS: hydrALAZINE HCL 25 MG TAB PO ONE (16:47)
[2023-10-02] MEDS ORDERED: CARVEDILOL 12.5 MG TAB PO SCH (22:00)
[2023-10-03] MEDS ORDERED: ENOXAPARIN SOD 40 MG/0.4 ML SYRINGE SC SCH (10:00)
== END 2023-10-02 19:45 | disposition hospice, home (50) | DRG 871 ==
LOC: ER 12:04 → EDBD 12:04 → TELE 17:13 → TELE-WESTW 09-30 03:07
PROVIDERS: ADMIT Nurse Practitioner Family; ATTEND Internal Medicine Geriatric Medicine
PROC: 06H033Z Insertion of Infusion Device into Inferior Vena Cava, Percutaneous Approach (ICD-10-PCS; principal; 2023-09-26)
PROC: B54BZZA Ultrasonography of Right Lower Extremity Veins, Guidance (ICD-10-PCS; 2023-09-26)
DX: A41.9 Sepsis, unspecified organism (principal); E43 Unspecified severe protein-calorie malnutrition; G93.41 Metabolic encephalopathy; R65.21 Severe sepsis with septic shock; N17.0 Acute kidney failure with tubular necrosis; I50.31 Acute diastolic (congestive) heart failure; E87.1 Hypo-osmolality and hyponatremia; N39.0 Urinary tract infection, site not specified; E78.5 Hyperlipidemia, unspecified; E87.5 Hyperkalemia; E11.22 Type 2 diabetes mellitus with diabetic chronic kidney disease; J44.9 Chronic obstructive pulmonary disease, unspecified; F10.10 Alcohol abuse, uncomplicated; Y90.9 Presence of alcohol in blood, level not specified; E88.09 Other disorders of plasma-protein metabolism, not elsewhere classified; K70.31 Alcoholic cirrhosis of liver with ascites; N18.32 Chronic kidney disease, stage 3b; I36.1 Nonrheumatic tricuspid (valve) insufficiency; I12.9 Hypertensive chronic kidney disease with stage 1 through stage 4 chronic kidney disease, or unspecified chronic kidney disease; E87.70 Fluid overload, unspecified; B19.20 Unspecified viral hepatitis C without hepatic coma; L89.159 Pressure ulcer of sacral region, unspecified stage; D63.8 Anemia in other chronic diseases classified elsewhere; Z79.899 Other long term (current) drug therapy; Z83.3 Family history of diabetes mellitus; Z82.3 Family history of stroke; Z68.28 Body mass index [BMI] 28.0-28.9, adult; Z82.49 Family history of ischemic heart disease and other diseases of the circulatory system; Z79.84 Long term (current) use of oral hypoglycemic drugs
CPT/HCPCS: 36415; 70450; 71045; 74176; 76705; 80048; 80053; 80202; 80320; 81001; 82140; 82270; 82962; 83605; 83735; 83880; 84484; 85025; 85379; 85610; 85730; 87040; 87081; 87086; 87088; 87186; 93005; 94640; 96365; C9113; G0378; J1815; J2543; P9047